=== PATIENT | female | born 1955 | race Caucasian/White ===

== ENCOUNTER 2017-11-29 10:20 | Emergency (ER) | payer BC ==
[2017-11-29 10:27] VITALS: TEMP 96.8
--- NOTE | 2017-11-29 12:03 | EDPHY ---
H & P Time Seen by Provider: 11/29/17 11:33 HPI/ROS: Chief complaint. Flashes in eye HPI. Patient is 62-year-old female with history of migraines. She often times gets a visual aura which she describes as staring into light bulb prior to her migraines. Last night she had migraine type symptoms but has had intermittent lightening type flashes in the upper peripheral aspect with her left eye. Mild headache but again not typical migraine. She is able to read and has not noticed any change in her vision. Otherwise not ill. No trauma. No peripheral weakness or sensory changes. No chest discomfort trouble breathing. No abdominal pain ROS Constitutional. no fever/chills, no weakness Eyes. Lightening type flashes in left eye ENT. no sore throat, no nasal drainage Cardiovascular. no chest pain Respiratory. no shortness of breath, no cough Abdominal. no abdominal pain, no nausea/vomiting, no diarrhea . no problems urinating MS. no calf pain/swelling, no neck/back pain, no joint pain Skin. no rash Lymph. no swollen glands Neuro. Headache Past Medical/Surgical History: Clavicle surgery, migraines Social History: , nonsmoker, no alcohol Smoking Status: Never smoked Physical Exam: General Appearance: Alert pleasant well-developed female mild distress vitals are stable Eyes: Pupils equal and round no pallor or injection. Funduscopic exam is normal. I do not see any floaters. Visual acuity is 20/20 both eyes. With confrontation I am unable to demonstrate any field deficits ENT, Mouth: Mucous membranes are moist. Respiratory: There are no retractions, lungs are clear to auscultation. Cardiovascular: Regular rate and rhythm. Gastrointestinal: Abdomen is soft and nontender, no masses, bowel sounds normal. Neurological: Awake and alert, sensory and motor exams grossly normal. Skin: Warm and dry, no rashes. Musculoskeletal: Neck is supple nontender. Extremities symmetrical, full range of motion. Psychiatric: Patient is oriented X 3, there is no agitation. Constitutional: Initial Vital Signs Temperature (C) 36.0 C 11/29/17 10:23 Heart Rate 81 11/29/17 10:23 Respiratory Rate 16 11/29/17 10:23 Blood Pressure 114/65 11/29/17 10:23 O2 Sat (%) 97 11/29/17 10:23 O2 Delivery Mode Room Air Allergies/Adverse Reactions: Tetracyclines Allergy (Verified 11/29/17 10:22) Home Medications: Medication Instructions Recorded Imitrex 11/29/17 Medical Decision Making ED Course/Re-evaluation: I consulted discussed the case with Dr. Powers, ophthalmology who will see the patient this evening at 6:00 p.m. At his office. I discussed this with the patient. She expresses understanding and agreement Differential Diagnosis: Little bit of a confusing case as the patient has migraines and typical visual prodrome and often her headaches are on the left side. She did have a headache last night however visual prodrome is much more consistent with vitreous detachment. Plan is ophthalmological evaluation Departure - Departure Disposition: Home, Routine, Self-Care Clinical Impression: Vitreous detachment of left eye Condition: Good Instructions: Visual Floaters (ED) Additional Instructions: Return today for worsening symptoms. Dr. Powers will meet you at his office this evening at 6:00 p.m. for further examination and evaluation Referrals: [facility]ER[facility] OLVERA [Other] - As per Instructions Oc Powers MD [Medical Doctor] - 1 day without fail
[2017-11-29 12:29] VITALS: BP 121/68; PULSE 78; RESP 18; O2SAT 99
== END 2017-11-29 12:29 | disposition home or self-care (01) ==
DX: H43.812 Vitreous degeneration, left eye (principal)